=== PATIENT | male | born 1990 | race Hispanic/Latino ===

== ENCOUNTER 2018-12-05 15:02 | Emergency (ER) | payer OTHER ==
[2018-12-05] MEDS ORDERED: TORADOL IM ONE (20:15)
--- NOTE | 2018-12-05 20:22 | Emergency Department Report ---
ED Extremity Problem HPI - General Chief complaint: Shoulder Injury Stated complaint: LFT SHOULDER PAIN Time Seen by Provider: 12/05/18 20:14 Source: patient Mode of arrival: Ambulatory Limitations: No Limitations - History of Present Illness Initial comments: Patient is a 28-year-old male who is presenting with 1 week of progressively worsening left shoulder pain. 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 Patient cannot remember any direct trauma or direct instances where he injured his left shoulder. He states week ago he woke up with pain which is worse with movement. He denies any chest pain short of breath cough cold congestion. Any movement of the shoulder and a rotational direction does cause pain with shoulder. Severity scale (0 -10): 7 Quality: aching - Related Data Previous Rx's Medication Instructions Recorded Last Taken Type Ibuprofen [Ibu] 800 mg PO Q8H PRN #20 tablet 12/05/18 Unknown Rx methOCARBAMOL [Robaxin TAB] 500 mg PO Q6H PRN #14 tablet 12/05/18 Unknown Rx traMADol [Ultram] 50 mg PO Q6HR PRN #12 tablet 12/05/18 Unknown Rx Allergies Allergy/AdvReac Type Severity Reaction Status Date / Time No Known Allergies Allergy Unverified 12/05/18 15:04 ED Review of Systems ROS: Stated complaint: LFT SHOULDER PAIN Other details as noted in HPI Comment: All other systems reviewed and negative ED Past Medical Hx - Past Medical History Previous Medical History?: No - Surgical History Past Surgical History?: No - Social History Smoking Status: Never Smoker Substance Use Type: Alcohol - Medications Home Medications: Home Medications Medication Instructions Recorded Confirmed Last Taken Type Ibuprofen [Ibu] 800 mg PO Q8H PRN #20 tablet 12/05/18 Unknown Rx methOCARBAMOL [Robaxin TAB] 500 mg PO Q6H PRN #14 tablet 12/05/18 Unknown Rx traMADol [Ultram] 50 mg PO Q6HR PRN #12 tablet 12/05/18 Unknown Rx ED Physical Exam - General Limitations: No Limitations General appearance: alert, in no apparent distress - Head Head exam: Present: atraumatic, normocephalic - Eye Eye exam: Present: normal appearance - ENT ENT exam: Present: mucous membranes moist - Neck Neck exam: Present: normal inspection - Respiratory Respiratory exam: Present: normal lung sounds bilaterally. Absent: respiratory distress, wheezes, rales - Cardiovascular Cardiovascular Exam: Present: regular rate, normal rhythm. Absent: systolic murmur, diastolic murmur, rubs, gallop - GI/Abdominal GI/Abdominal exam: Present: soft. Absent: distended - Rectal Rectal exam: Present: deferred - Extremities Exam Extremities exam: Present: normal inspection - Expanded Upper Extremity Exam Left Shoulder Exam: Present: normal inspection, tenderness (point tenderness at the AC joint and anterior shoulder). Absent: full ROM (secondary to pain), swelling, abrasion, ecchymosis, deformity, crepidus, dislocation, erythema - Back Exam Back exam: Present: normal inspection - Neurological Exam Neurological exam: Present: alert, oriented X3 - Psychiatric Psychiatric exam: Present: normal affect, normal mood - Skin Skin exam: Present: warm, dry, intact, normal color. Absent: rash ED Course Vital Signs 12/05/18 15:39 Temperature 98.4 F Pulse Rate 75 Respiratory 18 Rate Blood Pressure 132/76 O2 Sat by Pulse 100 Oximetry ED Medical Decision Making - Medical Decision Making Patient has no pain on palpation to the clavicle and there is no dental deformity suggestive of dislocation. Patient is also not had any direct trauma x-ray is not warranted at this time. Patient be referred to orthopedics for possible MRI and patient begin this for symptomatically relief. Critical care attestation.: If time is entered above; I have spent that time in minutes in the direct care of this critically ill patient, excluding procedure time. ED Disposition Clinical Impression: Rotator cuff dysfunction Qualifiers: Laterality: left Qualified Code(s): M67.912 - Unspecified disorder of synovium and tendon, left shoulder Disposition: - TO HOME OR SELFCARE Is pt being admited?: No Does the pt Need Aspirin: No Condition: Stable Instructions: Rotator Cuff Injury (ED) Referrals: GAGANDEEP TRACEY MD [Staff Physician] - 3-5 Days Time of Disposition: 20:22
[2018-12-05 20:28] VITALS: BP 131/81
== END 2018-12-05 20:41 | disposition home or self-care (01) ==
LOC: ED 15:02
DX: M67.912 Unspecified disorder of synovium and tendon, left shoulder (principal)
CPT/HCPCS: 96372; 99283; J1885